=== PATIENT | female | born 1950 | race American Indian/Alaskan Native ===

== ENCOUNTER 2022-03-17 11:45 | Outpatient (CLI) | payer MEDICARE ==
[2022-03-17 13:08] LABS: Alanine Aminotransferase 15 units/L (7-56); Albumin 4.5 g/dL (3.9-5); BUN/Creatinine Ratio 19; Blood Urea Nitrogen 15 mg/dL (7-17); Hemolysis Index 1
[2022-03-17 13:19] LABS: Free T4 (Free Thyroxine) 1.21 ng/dL (0.76-1.46)
== END 2022-03-17 11:46 | disposition home or self-care (01) ==
LOC: LAB 11:45
PROVIDERS: ATTEND Internal Medicine Endocrinology, Diabetes & Metabolism
DX: E89.0 Postprocedural hypothyroidism (principal); I10 Essential (primary) hypertension
CPT/HCPCS: 36415; 80053; 83036; 84439; 84443; 84481